=== PATIENT | female | born 1970 | race Caucasian/White ===

== ENCOUNTER → 2016-03-28 | Day surgery (SDC) | payer OTHER ==
[~2016-03-28] MED LIST: ACETAMINOPHEN 1000 MG/100 ML VIAL IV ONE; BUPIVACAINE/EPINEPHRINE 0.25% PF 30 ML VIAL ONE; EPINEPHrine HCL (1:1000) 1 MG/ML VIAL ONE; LACTATED RINGER'S 1000 ML INJ 1,000 ML ONE; LIDOCAINE 1%/EPINEPHrine 1:100,000 SOLN 30 ML VIAL ONE; LIDOCAINE HCL 1% PF 30 ML VIAL ONE; MEPERIDINE HCL 25 MG/ML VIAL ONE; MIDAZOLAM HCL 2 MG/2 ML VIAL ONE; SPIR50TA21 PO; WELLTAB39 PO; ceFAZolin INJ 1,000 MG VIAL ONE
--- NOTE | 2016-03-28 12:24 | TN ---
cc: MICHAEL MORENO M.D. 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 PROCEDURE SlimLipo and revision of the scar anterior lower abdomen. SURGEON Michael Moreno MD ANESTHESIA LMA general. ESTIMATED BLOOD LOSS Minimal. COMPLICATIONS None. PROCEDURE She was properly consented, marked and properly anesthetized. The skin was sterilized with Betadine solution. Utilizing the usual Tulip draping system. I proceeded to perform the proper tumescent technique in which the mixture was as follows, 1000 cc of normal saline mixed with 30 cc of 1% lidocaine with epinephrine. With this the tumescent was properly delivered in the upper and lower abdomen, flanks, back, inner and outer thighs. The SlimLipo laser energy was delivered in the usual fashion, delivering a total of 90,000 joules properly distributed in the upper and lower abdomen, flanks, back, and inner and outer thighs. Suction of the fluid took place in the usual fashion by rotating the patient [id number] as we delivered the energy as well as the tumescent fluid. Total I's and O's were 2875 in and 2275 out with a difference of 600 cc. Each and every one of the puncture wounds that were done utilizing an 11 blade were properly closed utilizing 5-0 chromic suture and Steri-Strips. A scar located in the suprapubic area where the patient had a previous abdominoplasty was revised. Due to the significant scarring we were able to revise only approximately 5 cm x 1.5 cm of the scar. I de-epithelialized the epidermis, left the dermis as a strength for the repair. The skin was brought over. Closure was done in multiple 2-0 Monocryl suture layers as well as Mastisol and Steri-Strips. A girdle was applied after padding the wounds properly. The patient tolerated the procedure well. She was awakened, extubated in the operating room and transferred back to the post-anesthesia care unit in stable condition. There were no complications appreciated. The patient tolerated the procedure fairly well. MD WENDY Car /11:55 AM /12:01 PM
== END | disposition home or self-care (01) ==
LOC: ESDC 08:20
PROVIDERS: ATTEND Plastic Surgery
DX: Z41.1 Encounter for cosmetic surgery (principal)
CPT/HCPCS: 00300; 00400; 13101; 15877; 15879; J0131; J0171; J0690; J2175; J2250; J3010; J7120